=== PATIENT | male | born 1970 | race Caucasian/White ===

== ENCOUNTER → 2018-01-09 | Outpatient (CLI) | payer OTHER | LOC: GMAM 11:35 | PROVIDERS: ATTEND Family Medicine | DX: Z12.5 Encounter for screening for malignant neoplasm of prostate (principal) ==

== ENCOUNTER → 2018-11-24 | Outpatient (CLI) | payer OTHER | LOC: SL 19:25 | PROVIDERS: ATTEND Family Medicine | DX: G47.10 Hypersomnia, unspecified (principal); R06.83 Snoring ==

== ENCOUNTER → 2019-01-28 | Outpatient (CLI) | payer OTHER | LOC: SL 00:01 | PROVIDERS: ATTEND Family Medicine | DX: G47.10 Hypersomnia, unspecified (principal); R06.83 Snoring ==

== ENCOUNTER → 2019-02-08 | Outpatient (CLI) | payer OTHER | LOC: SL 20:02 | PROVIDERS: ATTEND Family Medicine | DX: G47.10 Hypersomnia, unspecified (principal); R06.83 Snoring ==

== ENCOUNTER → 2019-05-25 | Outpatient (CLI) | payer OTHER | LOC: GMAM 10:39 | PROVIDERS: ATTEND Family Medicine | DX: Z00.00 Encounter for general adult medical examination without abnormal findings (principal) ==

== ENCOUNTER → 2020-07-14 | Outpatient (CLI) | payer OTHER | LOC: GMAM 12:49 | PROVIDERS: ATTEND Family Medicine | DX: R10.84 Generalized abdominal pain (principal); Z12.5 Encounter for screening for malignant neoplasm of prostate ==

== ENCOUNTER → 2020-07-16 | Outpatient (CLI) | payer OTHER ==
--- NOTE | 2020-07-16 18:07 | US ---
EXAM DESCRIPTION: Abdomen,Limited: ULTRASOUND. CLINICAL HISTORY: abdominal pain COMPARISON: Ultrasound-guided liver August 2012. TECHNIQUE: Transabdominal scanning: mallory-scale mode. Doppler mode. FINDINGS: Gallbladder: normal size, shape, echogenicity; no intraluminal stones or sludge. No fluid around the gallbladder. No wall thickening. 2.0 Non-tender with transducer pressure. Common bile duct: caliber 3.8 mm within normal limits. Liver: Heterogeneously increased echogenicity; contour liver capsule smooth where seen. No fluid around the liver. Intrahepatic biliary ducts normal caliber. Doppler hepatopedal flow and normal caliber portal vein.. 9.5 mm. Long axis right lobe 20.2 cm. Pancreas: Not well visualized. Duct not seen. Proximal abdominal aorta: 2.4 cm normal caliber.. IVC: visualized and normal caliber. Right kidney: long axis measures 10.9 cm; volume 131.3 ml. Cortical echogenicity normal. Cortical thickness normal. No echogenic stones; no hydronephrosis. IMPRESSION: 1. Fatty moderately enlarged liver. Physiologic ducts and vascularity. Smooth capsule and no ascites. Pancreas not well seen.. Diagnostic seen. 2. Gallbladder and common bile duct are negative. No ascites. 3. Sonographically normal right kidney. Normal caliber of the IVC and proximal abdominal aorta. Electronically signed by: Richy Raymond MD 07/16/2020 6:05 PM [facility] [place]
== END ==
LOC: US 10:20
PROVIDERS: ATTEND Family Medicine
DX: R16.0 Hepatomegaly, not elsewhere classified (principal)